=== PATIENT | female | born 1995 | race African-American/Black ===

== ENCOUNTER 2023-08-02 19:00 | Emergency (ER) | payer MEDICAID, SELFPAY ==
[2023-08-02 19:06] VITALS: PULSE 78
[2023-08-02 19:07] VITALS: BP 132/74; PULSE 92; RESP 14; TEMP 36.8; O2SAT 100
--- NOTE | 2023-08-02 19:22 | CRLHL7_ITS ---
For Patients: As a result of the Cures Act, medical imaging exams and procedure reports are released immediately into your electronic medical record. You may view this report before your referring provider. If you have questions, please contact your health care provider. INDICATION: Fall. TECHNIQUE: Right knee 3 views. COMPARISON: None. FINDINGS: No acute fracture or dislocation. The patella is normally aligned. Small knee joint effusion. Soft tissues are unremarkable. IMPRESSION: Small knee joint effusion. No fracture identified. Dictated by Violeta Martinez MD @ 08/02/2023 8:01:09 PM (Electronically Signed)
--- NOTE | 2023-08-02 19:22 | CRLHL7_ITS ---
For Patients: As a result of the Century Cures Act, medical imaging exams and procedure reports are released immediately into your electronic medical record. You may view this report before your referring provider. If you have questions, please contact your health care provider. INDICATION: Fall. TECHNIQUE: Right tibia and fibula, 2 views. COMPARISON: None. FINDINGS: No acute fracture identified. The knee and ankle appear normally aligned. Soft tissues are unremarkable. IMPRESSION: No acute findings. Dictated by Violeta Martinez MD @ 08/02/2023 8:03:00 PM (Electronically Signed)
--- NOTE | 2023-08-02 19:23 | ED.LOWEXIN ---
HPI - Extremity Injury (Lower) General Time Seen by Provider: 19:24 Date Seen: 08/30/23 Chief Complaint: Extremity Pain/Injury, Lower Stated Complaint: R knee pain/ankle pain Time Seen by Provider: 08/02/23 19:01 Source: patient, EMS and RN notes reviewed Mode of arrival: EMS Limitations: no limitations History of Present Illness HPI Narrative: 28-year-old female who comes in today with right leg pain after fall. She says she missed a step going down the stairs and twisted her knee and lower leg. Complains of pain on the lateral knee as well as the medial lower leg. Denies ankle pain. Took Tylenol at home. Pain is worse with walking. Denies head injury, neck pain, back pain. Related Data Home Medications Medication Instructions Recorded Confirmed ferrous sulfate 325 mg (65 mg 325 mg PO DAILY 08/02/23 08/02/23 iron) tablet Allergies Allergy/AdvReac Type Severity Reaction Status Date / Time No Known Drug Allergies Allergy Verified 08/02/23 19:33 [facility] Medical History (Updated 08/02/23 @ 20:01 by Sonu Dean MD) Vaginal delivery ?O80 - Encounter for full-term uncomplicated delivery (ICD-10) Anxiety ?F41.9 - Anxiety disorder, unspecified (ICD-10) Anemia ?D64.9 - Anemia, unspecified (ICD-10) Sickle cell anemia ?D57.1 - Sickle-cell disease without crisis (ICD-10) Depression ?F32.A - Depression, unspecified (ICD-10) Surgical History History of umbilical hernia repair ?Z98.890 - Other specified postprocedural states (ICD-10) ?Z87.19 - Personal history of other diseases of the digestive system (ICD-10) History of appendectomy ?Z90.49 - Acquired absence of other specified parts of digestive tract (ICD-10) Social History Smoking Status: Never smoker Second hand tobacco smoke exposure: No How often do you have a drink containing alcohol: never How often do you have six or more drinks on one occasion: Never AUDIT-C Alcohol total score: 0 Non-prescribed substance use: denies use Exam Narrative: Exam Narrative: General: well nourished , NAD Head: Atraumatic and normocephalic ENT: External ears and external nose are normal Eyes: Conjunctiva clear, pupils are equal reactive, external ocular motions are intact Neck: Full spontaneous range of motion of the neck Lungs: No respiratory distress Musculoskeletal: Right knee-lateral joint line tenderness and tenderness over the lateral collateral ligament. Tenderness of the posterior medial calf on the right, no tenderness over the lateral or medial malleolus. Achilles tendon is intact throughout its course and calf squeeze test is positive. Neurologic: No gross focal neurologic deficits Skin: No rashes Psych: Mood and affect are appropriate Const: Vital Signs, click to edit/add: Vital Signs - 24 hr 08/02/23 19:06 08/02/23 19:07 Temperature 98.2 F Pulse Rate [Right Dorsalis Pedis] 78 Pulse Rate [Right Pulse Oximeter] 92 Respiratory Rate 14 Blood Pressure [Ri ght Upper Arm] 132/74 Pulse Oximetry 100 Oxygen Delivery Me thod Room Air Course Course ED Course: Patient seen and examined, prior records are reviewed. Patient comes in today with right knee and lower leg pain after fall. No ankle pain or tenderness to suggest ankle fracture. The Achilles tendon is palpable throughout its course, no evidence for rupture. Mild tenderness of the medial calf along with the lateral joint line of the knee. X-rays are ordered. Reevaluation(s) Time of Reevaluation #1: 19:58 Reevaluation #1: X-ray of the knee and panel interpreted by me demonstrates small effusion, no acute fracture. X-ray of the tibia and fibula negative for acute fracture. Patient will be placed in a knee immobilizer and crutches weight-bearing as tolerated. Follow-up with orthopedics next week. Vital Signs Vital signs: Initial Vital Signs Pulse Rate 78 08/02/23 19:06 Vital Signs Pulse Rate 78 08/02/23 19:06 Temperature 98.2 F 08/02/23 19:07 Pulse Rate 92 08/02/23 19:07 Respiratory Rate 14 08/02/23 19:07 Blood Pressure 132/74 08/02/23 19:07 Pulse Oximetry 100 08/02/23 19:07 Oxygen Delivery Method Room Air 08/02/23 19:07 Discharge Plan Discharge Clinical Impression: Sprain of LCL (lateral collateral ligament) of knee, Strain of calf muscle Patient Disposition: Home, Self-Care Condition: Stable Instructions: Knee Sprain (DC), Crutch Instructions (ED) Additional Instructions: Tylenol ibuprofen as needed for pain. Follow-up with orthopedics clinic next week, call [phone] to schedule Activity Level: Weight Bearing as Tolerated Activity Detail: Wear immobilizer for comfort Prescriptions: No Action ferrous sulfate 325 mg (65 mg iron) tablet 325 mg PO DAILY Follow Up/Referrals: Provider,Not a Local [Primary Care Provider] - Stand Alone Forms: [employer] Info Instructions
[2023-08-02 20:12] VITALS: BP 125/70; PULSE 87; RESP 14; TEMP 36.9; O2SAT 100
[2023-08-02 20:36] VITALS: BP 125/70; PULSE 87; RESP 14; TEMP 36.9
== END 2023-08-02 20:36 | disposition home or self-care (01) ==
PROVIDERS: Emergency Provider Family Medicine
DX: S83.421A Sprain of lateral collateral ligament of right knee, initial encounter (principal); S86.111A Strain of other muscle(s) and tendon(s) of posterior muscle group at lower leg level, right leg, initial encounter; W10.9XXA Fall (on) (from) unspecified stairs and steps, initial encounter
CPT/HCPCS: 29505; 73562; 73590; 99284